=== PATIENT | male | born 1970 | race Caucasian/White ===

== ENCOUNTER 2021-01-11 23:11 | Emergency (ER) | payer BC ==
[2021-01-11 23:30] VITALS: BP 131/83; PULSE 81; TEMP 97.9; BMI 41.3
== END 2021-01-12 02:35 | disposition home or self-care (01) ==
LOC: JER 23:11
DX: S83.92XA Sprain of unspecified site of left knee, initial encounter (principal); X50.9XXA Other and unspecified overexertion or strenuous movements or postures, initial encounter
CPT/HCPCS: 73564-TC-LT-FY; 93971-TC; 99284-25

== ENCOUNTER 2024-05-23 11:03 | Emergency (ER) | payer SELFPAY ==
[2024-05-23 11:18] VITALS: BP 134/84; TEMP 98.4; BMI 41.3
[2024-05-23 13:43] VITALS: PULSE 100; RESP 17
== END 2024-05-23 13:43 | disposition home or self-care (01) ==
LOC: JER 11:03 → JERFT 11:03
DX: R05.9 Cough, unspecified (principal); R53.83 Other fatigue; J10.1 Influenza due to other identified influenza virus with other respiratory manifestations; R19.7 Diarrhea, unspecified; Z20.822 Contact with and (suspected) exposure to COVID-19
CPT/HCPCS: 0241U-QW; 99283-25